=== PATIENT | female | born 1945 | race Caucasian/White ===

== ENCOUNTER 2017-12-05 09:32 | Day surgery (SDC) | payer MEDICARE ==
[2017-12-04 10:55] LABS: BASOPHILS % (AUTO) 0 % (0-1); EOSINOPHILS # (AUTO) 0.1 X10'3 (0-0.9); EOSINOPHILS % (AUTO) 1.3 % (0-6); LYMPHOCYTES # (AUTO) 1.3 X10'3 (1.1-4.8); LYMPHOCYTES % (AUTO) 13.1 % (21-51); MEAN CORPUSCULAR HEMOGLOBIN 26.4 PG (27.0-31.0); MEAN CORPUSCULAR HGB CONC 31.8 % (33.0-36.5); MEAN CORPUSCULAR VOLUME 82.9 FL (78-98); MEAN PLATELET VOLUME 7.8 FL (7.4-10.4); MONOCYTES # (AUTO) 0.7 X10'3 (0-0.9); MONOCYTES % (AUTO) 7.2 % (2-12); NEUTROPHILS # (AUTO) 7.5 X10'3 (1.8-7.7); NEUTROPHILS % (AUTO) 78.4 % (42-75); PRE OP HEMATOCRIT 33.6 % (35.0-45.0); PRE OP PLATELET COUNT 577 X10'3 (140-440); RED BLOOD COUNT 4.05 X10'6 (4.20-5.60); RED CELL DISTRIBUTION WIDTH 17.5 % (11.5-14.5)
[2017-12-04 11:12] LABS: ALBUMIN 3.3 G/DL (3.4-5.0); ALBUMIN/GLOBULIN RATIO 0.9 (1.1-1.5); ALKALINE PHOSPHATASE 123 IU/L (46-116); BLOOD UREA NITROGEN 21 MG/DL (7-18); BUN/CREATININE RATIO 25.9 (6.6-38.0); CALCIUM 8.8 MG/DL (8.5-10.1); CHLORIDE 105 MMOL/L (99-107); CREATININE 0.81 MG/DL (0.40-0.90); PRE OP ALT 23 U/L (30-65); PRE OP ANION GAP 6 (8-16); PRE OP AST 17 U/L (10-37); PRE OP BILIRUB, TOTAL 0.2 MG/DL (0.0-1.0); PRE OP GLUCOSE 113 MG/DL (70-104); PRE OP POTASSIUM 4.3 MMOL/L (3.4-5.1); PRE OP SODIUM 141 MMOL/L (135-145); TOTAL CARBON DIOXIDE 29.7 MMOL/L (24-32); eGFR 70 ML/MIN
[2017-12-04 11:16] LABS: PRE OP HEMOGLOBIN 10.7 g/dL (12.0-16.0)
[~2017-12-05] VITALS: Ht 162.6 cm; Wt 71.8 kg
[2017-12-05] VITALS (9 sets, daily range): BP systolic 101–141; BP diastolic 44–86
[~2017-12-05 09:32] MED LIST: ACET-3068 PO; ATOR40TA PO; CARV3.12 PO; CHOL200035 PO; CYCL-1 PO; CYCL-394 PO; DOCUMENT DATE & TIME OF BETA-BLOCKER PO ONE; ESCI10TA45 PO; FLO0.1T PO; LISI-600 PO; OMEP20CA10 PO; PRED1TAB PO; PRED5TAB PO; ceFAZolin 1GM/D5W- ADD-VANTAGE 50 ML IV ONE; famotidine 20mg tablet PO ONE; ringers solution, lacted 1,000 ML IV SCH
[2017-12-05] MEDS ORDERED: LIDOcaine 0.5% (5mg/ml) 50ml vial ONE (11:04)
[2017-12-05] MEDS ORDERED: BUPIVAcaine/PF 2.5mg/ml (0.25%) 10ml vial ONE ×2 (12:07→13:00)
[2017-12-05] MEDS ORDERED: midazolam 2 mg/2 ml injection ONE (12:12)
[2017-12-05] MEDS ORDERED: fentaNYL/PF 50MCG/1 ML 2ML syringe ONE (12:12)
[2017-12-05] MEDS ORDERED: ringers solution, lacted 1,000 ML IV SCH (12:48)
[2017-12-05] MEDS ORDERED: ondansetron/PF 4mg/2ml inj IV PRN (12:50)
[2017-12-05] MEDS ORDERED: labetalol 5mg/ml 20ml inj. IV ONE (12:51)
[2017-12-05] MEDS: morphine 4 MG/ML inj SYRINge IV PRN ×2 (13:13→13:26)
[2017-12-05] MEDS ORDERED: acetaminophen 1,000mg/100ml IV 100 ML IV ONE (13:25)
== END 2017-12-05 14:10 | disposition home or self-care (01) ==
LOC: PAS 09:32
PROVIDERS: ATTEND Orthopaedic Surgery Hand Surgery
DX: M18.11 Unilateral primary osteoarthritis of first carpometacarpal joint, right hand (principal); M65.351 Trigger finger, right little finger; J44.9 Chronic obstructive pulmonary disease, unspecified; I10 Essential (primary) hypertension; K21.9 Gastro-esophageal reflux disease without esophagitis; B19.10 Unspecified viral hepatitis B without hepatic coma; G89.29 Other chronic pain; Z90.710 Acquired absence of both cervix and uterus; Z79.891 Long term (current) use of opiate analgesic; Z85.118 Personal history of other malignant neoplasm of bronchus and lung; Z90.2 Acquired absence of lung [part of]; Z87.442 Personal history of urinary calculi; Z96.651 Presence of right artificial knee joint; Z88.5 Allergy status to narcotic agent; Z88.6 Allergy status to analgesic agent; Z88.4 Allergy status to anesthetic agent; Z90.49 Acquired absence of other specified parts of digestive tract; Z87.891 Personal history of nicotine dependence; Z86.14 Personal history of Methicillin resistant Staphylococcus aureus infection; Z92.21 Personal history of antineoplastic chemotherapy; Z88.8 Allergy status to other drugs, medicaments and biological substances; Z79.899 Other long term (current) drug therapy; Z98.890 Other specified postprocedural states
CPT/HCPCS: 25447; 26055; 36415; 71046; 80053; 84443; 85025; A6222; A6449; J0131; J0690; J2001; J2250; J2270; J3010; J3490; J7120; A7000

== ENCOUNTER 2021-11-22 12:30 | Outpatient (CLI) | payer MEDICARE, MEDICAID ==
[~2021-11-22 12:30] MED LIST changes: -DOCUMENT DATE & TIME OF BETA-BLOCKER PO ONE; -LISI-600 PO; +LISI20TA28 PO; -OMEP20CA10 PO; +OMEP20CA15 PO; -ceFAZolin 1GM/D5W- ADD-VANTAGE 50 ML IV ONE; -famotidine 20mg tablet PO ONE; -ringers solution, lacted 1,000 ML IV SCH
== END 2021-11-22 23:59 | disposition home or self-care (01) ==
LOC: CARD DIAG 12:30
PROVIDERS: ATTEND Internal Medicine Cardiovascular Disease
DX: I08.3 Combined rheumatic disorders of mitral, aortic and tricuspid valves (principal); I95.9 Hypotension, unspecified
CPT/HCPCS: 93306

== ENCOUNTER 2023-12-10 09:06 | Day surgery (SDC) | payer MEDICARE, MEDICAID ==
[2023-12-09 15:12] LABS: BASOPHILS % (AUTO) 0.4 % (0-1); EOSINOPHILS % (AUTO) 0 % (0-6); HEMATOCRIT 38.7 % (35.0-45.0); HEMOGLOBIN 12.1 g/dl (12.0-16.0); LYMPHOCYTES # (AUTO) 0.6 X10'3 (1.1-4.8); LYMPHOCYTES % (AUTO) 6.7 % (21-51); MEAN CORPUSCULAR HEMOGLOBIN 25.8 PG (27.0-31.0); MEAN CORPUSCULAR HGB CONC 31.4 g/dL (33.0-36.5); MEAN PLATELET VOLUME 8.7 FL (7.4-10.4); MONOCYTES # (AUTO) 0.7 X10'3 (0-0.9); NEUTROPHILS # (AUTO) 7.9 X10'3 (1.8-7.7); NEUTROPHILS % (AUTO) 85.9 % (42-75); PLATELET COUNT 345 X10'3 (140-440); RED BLOOD COUNT 4.71 X10'6 (4.20-5.60); RED CELL DISTRIBUTION WIDTH 22.7 % (11.5-14.5); WHITE BLOOD COUNT 9.3 X10'3 (4.5-11.0)
[2023-12-09 15:23] LABS: APTT 23 SECONDS (22-32); PROTHROMBIN TIME 10.3 SECONDS (9.0-12.0)
[2023-12-09 15:26] LABS: ALBUMIN 3.3 G/DL (3.4-5.0); ANION GAP 8 (8-16); BLOOD UREA NITROGEN 22 MG/DL (7-18); BUN/CREATININE RATIO 26.5 (10.0-20.0); CALCIUM 9.2 MG/DL (8.5-10.1); CHLORIDE 107 MMOL/L (99-107); CREATININE 0.83 MG/DL (0.40-0.90); GLUCOSE 76 MG/DL (70-104); POTASSIUM 4.5 MMOL/L (3.5-5.1); SODIUM 142 MMOL/L (135-145); TOTAL CARBON DIOXIDE 26.9 MMOL/L (24-32); eGFR 67 ML/MIN
[2023-12-09 16:07] LABS: ANISOCYTOSIS 3+; PLATELET ESTIMATE NORMAL; STOMATOCYTES FEW; TARGET CELLS FEW
[2023-12-10] VITALS (11 sets, daily range): BP systolic 135–164; BP diastolic 47–87; PULSE 72–89; RESP 12–17; TEMP 98; O2SAT 93–98
[~2023-12-10] VITALS: Ht 162.6 cm; Wt 79.0 kg
[2023-12-10] MEDS ORDERED: METH-339 PO (10:06)
[2023-12-10] MEDS ORDERED: ALBU10.7 IH (10:06)
[2023-12-10] MEDS ORDERED: DOCU-361 PO (10:06)
[2023-12-10] MEDS ORDERED: CARV-50 PO (10:06)
[2023-12-10] MEDS ORDERED: LEVO100T9 PO (10:06)
[2023-12-10] MEDS ORDERED: RIVA2.5T PO (10:06)
[2023-12-10] MEDS ORDERED: PREG100C56 PO (10:06)
[2023-12-10] MEDS ORDERED: LISI5TAB22 PO (10:06)
[2023-12-10] MEDS: diphenhydrAMINE 25mg capsule PO PRN (11:19)
[2023-12-10] MEDS: LORazepam 0.5 MG tablet PO PRN (11:19)
[2023-12-10] MEDS: normal saline 1,000 ML IV SCH (11:19)
[2023-12-10] MEDS ORDERED: verapamil 2.5 mg/ml inj IV ONE (13:12)
[2023-12-10] MEDS ORDERED: fentaNYL/PF 50MCG/1 ML 2ML syringe ONE (13:12)
[2023-12-10] MEDS ORDERED: LIDOcaine 1% (10mg/ml) 2ml vial ONE (13:12)
[2023-12-10] MEDS ORDERED: midazolam 1 mg/ML 2ml injection ONE (13:12)
[2023-12-10] MEDS ORDERED: iohexol 350MG/ML 100ml bottle IV ONE (13:13)
[2023-12-10] MEDS ORDERED: nitroGLYCERIN 500mcg/5mL D5W 5 ML IV ONE (13:13)
[2023-12-10] MEDS ORDERED: heparin 1,000unit/ml 10ml vial 10 ML ONE (13:13)
[2023-12-10] MEDS ORDERED: iohexol 350 MG/ML 50ML vial IV ONE ×2 (13:13→14:09)
[2023-12-10 14:20] LABS: ISTAT HGB ART 12.2 g/dl (12.0-16.0); ISTAT Hct ART 36 %PCV (35-45); ISTAT O2 SATURATION ARTERIAL 90 % (95-98); ISTAT SOURCE ART
[2023-12-10] MEDS ORDERED: proCHLORperazine 10 MG/2 ml inj IV PRN (15:10)
[2023-12-10] MEDS ORDERED: ondansetron/PF 4mg/2ml inj IV PRN (15:10)
[2023-12-10] MEDS ORDERED: OXAZEpam 15mg capsule PO PRN (15:10)
[2023-12-10] MEDS: acetaminophen 325mg tablet PO PRN (18:03)
[2023-12-12 07:27] LABS: ISTAT HGB MIX 12.6 g/dl (12.0-16.0); ISTAT Hct MIX 37 %PCV (35-45); ISTAT O2 SATURATION MIX VENOUS 61 % (60-80); ISTAT SOURCE VEN
== END 2023-12-10 19:17 | disposition home or self-care (01) ==
LOC: SSTAY O 09:06
PROVIDERS: ATTEND Internal Medicine Cardiovascular Disease
DX: I35.0 Nonrheumatic aortic (valve) stenosis (principal); I25.10 Atherosclerotic heart disease of native coronary artery without angina pectoris; I10 Essential (primary) hypertension; E78.5 Hyperlipidemia, unspecified; K21.9 Gastro-esophageal reflux disease without esophagitis; J44.9 Chronic obstructive pulmonary disease, unspecified; I73.9 Peripheral vascular disease, unspecified; Z85.118 Personal history of other malignant neoplasm of bronchus and lung; Z86.73 Personal history of transient ischemic attack (TIA), and cerebral infarction without residual deficits; Z79.01 Long term (current) use of anticoagulants; Z79.82 Long term (current) use of aspirin; Z79.890 Hormone replacement therapy; Z79.899 Other long term (current) drug therapy; Z90.2 Acquired absence of lung [part of]; Z90.411 Acquired partial absence of pancreas; Z90.49 Acquired absence of other specified parts of digestive tract; Z90.710 Acquired absence of both cervix and uterus; Z90.81 Acquired absence of spleen; Z90.89 Acquired absence of other organs; Z96.651 Presence of right artificial knee joint; Z98.890 Other specified postprocedural states; Z88.5 Allergy status to narcotic agent; Z88.8 Allergy status to other drugs, medicaments and biological substances; Z80.9 Family history of malignant neoplasm, unspecified
CPT/HCPCS: 36415; 76937; 80048; 82803; 85014; 85025; 85610; 85730; 93005; 93460; 93567; 99152; 99153; A6258; A6402; C1725; C1751; C1894; J1644; J2001; J2250; J3010; J3490; J7030; Q0163; Q9967; Z7610; 75625; 85008; A6449

== ENCOUNTER 2023-12-31 10:49 | Outpatient (CLI) | payer MEDICARE, MEDICAID ==
[~2023-12-31] VITALS: Ht 162.6 cm; Wt 78.0 kg
[~2023-12-31 10:49] MED LIST changes: +ALBU10.7 IH; +CARV-50 PO; -CARV3.12 PO; -CHOL200035 PO; -CYCL-1 PO; +DOCU-361 PO; -FLO0.1T PO; +IODIXANOL 320 MG/ML INFUS..BTL 100ML IV ONE; +LEVO100T9 PO; -LISI20TA28 PO; +LISI5TAB22 PO; +METH-339 PO; -PRED1TAB PO; +PREG100C56 PO; +RIVA2.5T PO
[2023-12-31 11:39] LABS: BASOPHILS # (AUTO) 0.1 X10'3 (0-0.2); BASOPHILS % (AUTO) 0.5 % (0-1); EOSINOPHILS # (AUTO) 0.1 X10'3 (0-0.9); EOSINOPHILS % (AUTO) 0.6 % (0-6); HEMATOCRIT 38.2 % (35.0-45.0); LYMPHOCYTES # (AUTO) 0.8 X10'3 (1.1-4.8); LYMPHOCYTES % (AUTO) 7.4 % (21-51); MEAN CORPUSCULAR HEMOGLOBIN 26.2 PG (27.0-31.0); MEAN CORPUSCULAR HGB CONC 31.4 g/dL (33.0-36.5); MEAN CORPUSCULAR VOLUME 83.5 FL (78-98); MEAN PLATELET VOLUME 8.8 FL (7.4-10.4); MONOCYTES # (AUTO) 0.8 X10'3 (0-0.9); MONOCYTES % (AUTO) 7.3 % (2-12); NEUTROPHILS # (AUTO) 8.8 X10'3 (1.8-7.7); NEUTROPHILS % (AUTO) 84.2 % (42-75); PLATELET COUNT 389 X10'3 (140-440); RED BLOOD COUNT 4.57 X10'6 (4.20-5.60); RED CELL DISTRIBUTION WIDTH 20.3 % (11.5-14.5); WHITE BLOOD COUNT 10.4 X10'3 (4.5-11.0)
[2023-12-31 11:46] LABS: APTT 27 SECONDS (22-32); INR 1.1 INR; PROTHROMBIN TIME 11.4 SECONDS (9.0-12.0)
[2023-12-31 11:58] LABS: ANISOCYTOSIS 3+; ELLIPTOCYTES FEW; HYPOCHROMASIA 1+; PLATELET ESTIMATE NORMAL
[2023-12-31 11:59] LABS: TARGET CELLS FEW
[2023-12-31 12:18] LABS: ALANINE AMINOTRANSFERASE 21 U/L (12-78); ALBUMIN 3.3 G/DL (3.4-5.0); ALBUMIN/GLOBULIN RATIO 0.9 (1.1-1.5); ALKALINE PHOSPHATASE 79 IU/L (46-116); ANION GAP 9 (8-16); ASPARTATE AMINO TRANSFERASE 23 U/L (10-37); BILIRUBIN,TOTAL 0.2 MG/DL (0.1-1.0); BLOOD UREA NITROGEN 26 MG/DL (7-18); BUN/CREATININE RATIO 35.1 (10.0-20.0); CHLORIDE 105 MMOL/L (99-107); CREATININE 0.74 MG/DL (0.40-0.90); GLUCOSE 105 MG/DL (70-104); POTASSIUM 4.9 MMOL/L (3.5-5.1); PRO BRAIN NATRIURETIC PEPTIDE 156 PG/ML (0-450); SODIUM 139 MMOL/L (135-145); TOTAL CARBON DIOXIDE 25.4 MMOL/L (24-32); TOTAL PROTEIN 6.9 G/DL (6.4-8.2); eGFR 76 ML/MIN
[2023-12-31] MEDS ORDERED: albuterol 2.5 MG/3 ML nebule NEB ONE (13:25)
[2023-12-31 13:32] VITALS: PULSE 76; RESP 16; O2SAT 0
[2023-12-31 13:36] LABS: ABG BASE EXCESS -1.7 mmol/L (-2.0-2.0); ABG HCO3 22.8 mmol/L (22.0-26.0); ABG OXYGEN SATURATION 95.3 % (92-98.5); ABG PCO2 (T) 37.6 mmHg (32.0-45.0); ABG PO2 (T) 79.1 mmHg (75.0-100.0); ALLEN'S TEST POSITIVE; FHHb 4.7 % (0.0-5.0); FO2Hb 94.3 % (94-97); MODE ROOM AIR; TOTAL HEMOGLOBIN 12.8 G/dl (12.0-16.0)
[2023-12-31] MEDS: albuterol 2.5 MG/3 ML nebule NEB ONE (13:41)
[2023-12-31 13:43] VITALS: PULSE 75; RESP 16
== END 2023-12-31 23:59 | disposition home or self-care (01) ==
LOC: TAVR 10:49 → EDSTATUS 12:00 → RT 23:59
PROVIDERS: ATTEND Internal Medicine Cardiovascular Disease
DX: I35.0 Nonrheumatic aortic (valve) stenosis (principal); R06.02 Shortness of breath; I65.29 Occlusion and stenosis of unspecified carotid artery; J44.9 Chronic obstructive pulmonary disease, unspecified; Z98.890 Other specified postprocedural states
CPT/HCPCS: 36415; 36600; 71046; 71275; 74174; 75572; 80053; 82803; 83880; 85008; 85018; 85025; 85610; 85730; 94060; 94727; 94729; 94760; Q9967; Z7610

== ENCOUNTER 2024-02-12 08:00 | Emergency (ER) | payer MEDICARE, MEDICAID ==
[~2024-02-12] VITALS: Ht 162.6 cm; Wt 78.8 kg
[~2024-02-12 08:00] MED LIST changes: -IODIXANOL 320 MG/ML INFUS..BTL 100ML IV ONE
[2024-02-12] MEDS: ondansetron/PF 4mg/2ml inj IV ONE (08:31)
[2024-02-12 08:37] LABS: BASOPHILS % (AUTO) 0.1 % (0-1); EOSINOPHILS % (AUTO) 0.4 % (0-6); HEMATOCRIT 39.4 % (35.0-45.0); HEMOGLOBIN 12.4 g/dl (12.0-16.0); LYMPHOCYTES # (AUTO) 0.5 X10'3 (1.1-4.8); LYMPHOCYTES % (AUTO) 6.2 % (21-51); MEAN CORPUSCULAR HEMOGLOBIN 26.2 PG (27.0-31.0); MEAN CORPUSCULAR HGB CONC 31.4 g/dL (33.0-36.5); MEAN CORPUSCULAR VOLUME 83.2 FL (78-98); MEAN PLATELET VOLUME 8.5 FL (7.4-10.4); MONOCYTES % (AUTO) 12.3 % (2-12); NEUTROPHILS # (AUTO) 6.5 X10'3 (1.8-7.7); PLATELET COUNT 315 X10'3 (140-440); RED BLOOD COUNT 4.74 X10'6 (4.20-5.60); RED CELL DISTRIBUTION WIDTH 17.9 % (11.5-14.5)
[2024-02-12 08:48] LABS: ALANINE AMINOTRANSFERASE 19 U/L (12-78); ALBUMIN/GLOBULIN RATIO 0.9 (1.1-1.5); ALKALINE PHOSPHATASE 81 IU/L (46-116); ANION GAP 11 (8-16); ASPARTATE AMINO TRANSFERASE 28 U/L (10-37); BILIRUBIN,TOTAL 0.4 MG/DL (0.1-1.0); BLOOD UREA NITROGEN 17 MG/DL (7-18); BUN/CREATININE RATIO 25.8 (10.0-20.0); CALCIUM 8.7 MG/DL (8.5-10.1); CHLORIDE 102 MMOL/L (99-107); CREATININE 0.66 MG/DL (0.40-0.90); GLUCOSE 85 MG/DL (70-104); LIPASE 18 U/L (16-77); POTASSIUM 3.3 MMOL/L (3.5-5.1); SODIUM 137 MMOL/L (135-145); TOTAL CARBON DIOXIDE 24.4 MMOL/L (24-32); TOTAL PROTEIN 6.5 G/DL (6.4-8.2); eCRCL 62 ML/MIN; eGFR 87 ML/MIN
[2024-02-12] MEDS: normal saline 1000ML IV soln IVB ONE (09:00)
[2024-02-12 09:14] LABS: BILIRUBIN,URINE SMALL (Neg); CLARITY,URINE CLEAR (Clear); COLOR,URINE YELLOW (Yellow); GLUCOSE, URINE NEGATIVE (Neg); KETONES,URINE 15 mg/dl (Neg); LEUKOCYTE ESTERASE ,URINE NEGATIVE (Neg); NITRITES, URINE NEGATIVE (Neg); OCCULT BLOOD,URINE SMALL (Neg); PROTEIN,URINE NEGATIVE (Neg); UROBILINOGEN,URINE 0.2 E.U/dL (0.2-1.0)
[2024-02-12 09:15] LABS: UA COLLECTION TYPE CLN CATCH MIDSTREAM
[2024-02-12 09:20] LABS: BACTERIA,URINE NONE SEEN /HPF (Neg); MUCUS STRANDS FEW /LPF (Neg); RBC,URINE 0-2 /HPF (0-2); SQUAMOUS EPITHELIAL CELL,UR FEW /LPF (FEW); WBC,URINE 0-4 /HPF (0-4)
[2024-02-12] MEDS: acetaminophen 325mg tablet PO ONE ×2 (09:23→09:24)
[2024-02-12] MEDS: potassium Cl 20 mEq SR tablet PO STA (10:08)
[2024-02-12 10:53] VITALS: O2SAT 95
[2024-02-12] MEDS ORDERED: DIPH-186 PO (10:58)
[2024-02-12] MEDS ORDERED: ONDA-243 PO (10:59)
[2024-02-12 11:08] VITALS: BP 140/67; PULSE 90; RESP 16; TEMP 98.3
== END 2024-02-12 11:25 | disposition home or self-care (01) ==
LOC: ER 08:00
DX: B34.9 Viral infection, unspecified (principal); R11.2 Nausea with vomiting, unspecified; R19.7 Diarrhea, unspecified; Z88.6 Allergy status to analgesic agent; Z88.5 Allergy status to narcotic agent; Z79.899 Other long term (current) drug therapy; Z79.1 Long term (current) use of non-steroidal anti-inflammatories (NSAID)
CPT/HCPCS: 36415; 71045; 80053; 81001; 83690; 85025; 96374; 99284; J2405; J7030; J7040